=== PATIENT | female | born 1990 | race Caucasian/White ===

== ENCOUNTER 2018-11-26 23:34 | Emergency (ER) | payer BC ==
[2018-11-27] MEDS ORDERED: Sodium Chloride 0.9% 1,000 ML IV ONE (00:07)
[2018-11-27] MEDS ORDERED: Iohexol 240 (50 ml) PO ONE (00:09)
--- NOTE | 2018-11-27 00:10 | C.PDOC ---
History Of Present Illness 27 year old female presents to the ED complaining of upper abdominal pain for 3 hours. Denies any nausea, vomiting, diarrhea, fever, chills, urinary symptoms, chest pain, shortness of breath or any other complaints. Denies radiation of pain. Chief Complaint (Nursing): Abdominal Pain History Per: Patient History/Exam Limitations: no limitations Onset/Duration Of Symptoms: Hrs (3) Current Symptoms Are (Timing): Still Present Location Of Pain/Discomfort: RUQ, LUQ Radiation Of Pain To:: None Quality Of Discomfort: "Pain" Associated Symptoms: denies: Fever, Chills, Nausea, Vomiting, Diarrhea, Back Pain, Chest Pain, Urinary Symptoms Past Medical History Reviewed: Historical Data, Nursing Documentation, Vital Signs Vital Signs: Last Vital Signs Temp 98.7 F 11/26/18 23:44 Pulse 67 11/26/18 23:44 Resp 20 11/26/18 23:44 BP 92/61 L 11/26/18 23:44 Pulse Ox 100 11/26/18 23:44 - Medical History PMH: No Chronic Diseases Surgical History: No Surg Hx Family History: States: No Known Family Hx - Social History Hx Alcohol Use: No Hx Substance Use: No - Immunization History Hx Tetanus Toxoid Vaccination: No Hx Influenza Vaccination: No Hx Pneumococcal Vaccination: No Review Of Systems Except As Marked, All Systems Reviewed And Found Negative. Constitutional: Negative for: Fever, Chills Cardiovascular: Negative for: Chest Pain Respiratory: Negative for: Shortness of Breath Gastrointestinal: Positive for: Abdominal Pain. Negative for: Nausea, Vomiting, Diarrhea Genitourinary: Negative for: Dysuria, Hematuria Musculoskeletal: Negative for: Back Pain Physical Exam - Physical Exam Appears: Non-toxic, No Acute Distress Skin: Warm, Dry Head: Normacephalic Eye(s): bilateral: Normal Inspection Nose: Normal Oral Mucosa: Moist Neck: Supple Chest: Symmetrical Cardiovascular: Rhythm Regular Respiratory: Normal Breath Sounds, No Rales, No Rhonchi, No Wheezing Gastrointestinal/Abdominal: Bowel Sounds (normal ), Tenderness (bilateral upper abdominal quadrant tenderness), No Distention, No Guarding, No Rebound Back: No CVA Tenderness Neurological/Psych: Oriented x3, Normal Speech Gait: Steady ED Course And Treatment - Laboratory Results Result Diagrams: 11/27/18 00:07 11/27/18 00:07 O2 Sat by Pulse Oximetry: 100 (RA) Pulse Ox Interpretation: Normal - CT Scan/US CT PEL/ABD Other Rad Studies (CT/US): Read By Radiologist, Radiology Report Reviewed CT/US Interpretation: CT SCAN OF THE ABDOMEN AND PELVIS WITH CONTRAST. CLINICAL HISTORY: Abdominal pain. TECHNIQUE: Multiple axial and coronal CT images were obtained through the abdomen and pelvis after administration of intravenous contrast material. COMMENTS: Diffuse thickening enhancement of the gallbladder. Mild amount of pericholecystic free fluid. Moderate amount of fecal residue in the large bowel. The liver is of uniform attenuation without mass or defect. There is no intra or extrahepatic biliary ductal dilatation. The spleen is normal. The pancreas is of normal contour and attenuation characteristics. There is no evidence of adrenal mass. Both kidneys demonstrate prompt and equal nephrograms. The kidneys are normal in size, shape and configuration. There is no evidence of renal or ureteral mass. No renal or ureteral calculi are identified. There is no hydroureter or hydronephrosis. No evidence for appendicitis. There is no bowel wall thickening. No evidence for small or large bowel obstruction. There is no evidence of abdominal ascites or lymphadenopathy. There is no evidence of intrinsic or extrinsic bladder mass. There is no pelvic ascites or lymphadenopathy. Images of the lung bases show no evidence of pleural or parenchymal mass. There are no pleural effusions. The bony structures are free of lytic or blastic lesions. IMPRESSION: Suspected developing acute inflammatory pathology of the gallbladder. Sonographic evaluation is suggested. Constipation. Thank you for your kind referral of this patient. Medical Decision Making Medical Decision Making: Plan - CT ABD/PEL - Bentryl 20mg IM - Pepcid 20mg IVP - IV fluids - UA - POC Preg Spoke with Dr. Hastings, Gen Surgery. Patient will be admitted. Disposition Discussed With : Quan Hastings Doctor Will See Patient In The: Hospital Counseled Patient/Family Regarding: Diagnosis - Disposition Disposition: HOSPITALIZED Disposition Time: 04:20 Condition: STABLE - POA Present On Arrival: None - Clinical Impression Clinical Impression: Acute cholecystitis - Scribe Statement The provider has reviewed the documentation as recorded by the Deanibdora Hankins All medical record entries made by the Deanibdora were at my direction and personally dictated by me. I have reviewed the chart and agree that the record accurately reflects my personal performance of the history, physical exam, medical decision making, and the department course for this patient. I have also personally directed, reviewed, and agree with the discharge instructions and disposition.
[2018-11-27 00:17] LABS: SQUAMOUS EPITHIAL 10 /hpf (0-5); URINE BACTERIA RARE (<OCC); URINE BILIRUBIN NEGATIVE (NEGATIVE); URINE BLOOD NEGATIVE (NEGATIVE); URINE CLARITY Hazy (Clear); URINE COLOR Amber (YELLOW); URINE GLUCOSE (UA) NORMAL (Normal); URINE LEUKOCYTE ESTERASE 1+ Leu/uL (Negative); URINE PROTEIN NEGATIVE (NEGATIVE); URINE UROBILINOGEN NORMAL mg/dL (0.2-1.0)
[2018-11-27] MEDS ORDERED: Iodixanol 320 MG/ML 100 ML BOTTLE IV ONE ×2 (00:28→01:39)
[2018-11-27 00:31] LABS: BASO % 0.3 % (0.0-2.0); EOS # 0.2 K/uL (0.0-0.7); EOS % 1.3 % (0.0-4.0); HEMOGLOBIN 13.1 g/dL (11.0-16.0); LYMPH # 4.3 K/uL (1.0-4.3); LYMPH % 33.7 % (20.0-40.0); MEAN CORPUSCULAR HEMOGLOBIN 29.7 pg (27.0-31.0); MEAN CORPUSCULAR HGB CONC 33.7 g/dL (33.0-37.0); MEAN PLATELET VOLUME 9.3 fL (7.2-11.7); MONO # 0.8 K/uL (0.0-0.8); MONO % 6.6 % (0.0-10.0); NEUT # 7.5 K/uL (1.8-7.0); NEUT % 58.1 % (50.0-75.0); RBC 4.4 Mil/uL (3.80-5.20); RED CELL DISTRIBUTION WIDTH 13.2 % (11.5-14.5); WHITE BLOOD COUNT 12.8 K/uL (4.8-10.8)
[2018-11-27 00:32] LABS: ALB/GLOB RATIO 1.8 (1.0-2.1); ALBUMIN 4.6 g/dL (3.5-5.0); ALT/SGPT 53 U/L (9-52); AST/SGOT 113 U/L (14-36); BLOOD UREA NITROGEN 20 mg/dL (7-17); CALCIUM 9.3 mg/dl (8.6-10.4); GFR NON-AFRICAN AMERICAN > 60; LIPASE 213 U/L (23-300)
[2018-11-27] MEDS ORDERED: Iohexol 240 (50 ml) ONE (00:34)
[2018-11-27] MEDS ORDERED: Sodium Chloride 0.9% 1,000 ML ONE (00:34)
[2018-11-27] MEDS ORDERED: Piperacillin/Tazobact 3.375 gm 100 ML IVPB STA (02:23)
[2018-11-27] MEDS ORDERED: metroNIDAZOLE IV 500 mg/100 ml 500 MG/100 ML BAG IVPB SCH (02:30)
[2018-11-27] MEDS ORDERED: Piperacillin/Tazobact 3.375 gm 100 ML IVPB ONE (03:07)
[2018-11-27] MEDS ORDERED: metroNIDAZOLE IV 500 mg/100 ml 500 MG/100 ML BAG ONE (03:07)
[2018-11-27 04:47] VITALS: RESP 20
[2018-11-27] MEDS ORDERED: Lactated Ringer's 1,000 ML IV SCH (06:15)
--- NOTE | 2018-11-27 07:33 | CP.PCM.HP ---
History of Present Illness - History of Present Illness History of Present Illness: GENERAL SURGERY HISTORY AND PHYSICAL FOR DR. BERNAL 27yo F with no PMHx presents to the ED with abdominal pain. The pain began suddenly at 11PM last night. She denies nausea or vomiting. States that the pain has completely resolved. Denies ever having pain like this before. Reports having normal BMs. PMHx: none Surgeries: Jul 2017 Medications: none Allergies: none Social history: rare etoh, never tobacco or illicit drug use Present on Admission - Present on Admission Any Indicators Present on Admission: No Review of Systems - Review of Systems All systems: reviewed and no additional remarkable complaints except (as per HPI) Past Patient History - Past Medical History & Family History Past Medical History?: No - Past Social History Smoking Status: Never Smoked Alcohol: Other (rare) Drugs: Denies - MUSCULOSKELETAL/RHEUMATOLOGICAL Hx Falls: No - PSYCHIATRIC Hx Substance Use: No - SURGICAL HISTORY Hx Surgeries: Yes Hx Section: Yes (Jul 2017) Other/Comment: C section - ANESTHESIA Hx Anesthesia: Yes Hx Anesthesia Reactions: No Hx Malignant Hyperthermia: No Has any member of the family had a problem w/ anesthesia?: No Meds Allergies/Adverse Reactions: Allergies Allergy/AdvReac Type Severity Reaction Status Date / Time No Known Allergies Allergy Unverified 11/26/18 23:48 Physical Exam - Constitutional Appears: Well, Non-toxic, No Acute Distress - Head Exam Head Exam: ATRAUMATIC, NORMAL INSPECTION - Eye Exam Eye Exam: EOMI, Normal appearance - Respiratory Exam Respiratory Exam: NORMAL BREATHING PATTERN. absent: Respiratory Distress - Cardiovascular Exam Cardiovascular Exam: +S1, +S2 - GI/Abdominal Exam GI & Abdominal Exam: Soft. absent: Distended, Firm, Guarding, Rebound, Rigid, Tenderness Additional comments: Negative Mcdonald sign - Neurological Exam Neurological exam: Alert, CN II-XII Intact, Oriented x3 - Psychiatric Exam Psychiatric exam: Normal Affect, Normal Mood - Skin Skin Exam: Dry, Normal Color, Warm Results - Vital Signs Recent Vital Signs: Last Vital Signs Temp 97.6 F 11/27/18 04:39 Pulse 64 11/27/18 04:39 Resp 20 11/27/18 05:26 BP 100/60 11/27/18 04:39 Pulse Ox 100 11/27/18 05:36 - Labs Result Diagrams: 11/27/18 00:07 11/27/18 00:07 Labs: Laboratory Results - last 24 hr 11/26/18 11/27/18 11/27/18 23:58 00:07 00:07 WBC 12.8 H RBC 4.40 Hgb 13.1 Hct 38.8 MCV 88.0 MCH 29.7 MCHC 33.7 RDW 13.2 Plt Count 242 MPV 9.3 Neut % (Auto) 58.1 Lymph % (Auto) 33.7 [place] % (Auto) 6.6 Eos % (Auto) 1.3 Baso % (Auto) 0.3 Neut # (Auto) 7.5 H Lymph # (Auto) 4.3 [place] # (Auto) 0.8 Eos # (Auto) 0.2 Baso # (Auto) 0.0 Sodium 136 Potassium 3.4 L Chloride 101 Carbon Dioxide 26 Anion Gap 12 BUN 20 H Creatinine 0.9 Est GFR ( Amer) > 60 Est GFR (Non-Af Amer) > 60 Random Glucose 136 H Calcium 9.3 Total Bilirubin 0.4 AST 113 H ALT 53 H Alkaline Phosphatase 73 Total Protein 7.2 Albumin 4.6 Globulin 2.6 Albumin/Globulin Ratio 1.8 Lipase 213 Urine Color [place] Urine Clarity Hazy Urine pH 5.0 Ur Specific [place] 1.014 Urine Protein Negative Urine Glucose (UA) Normal Urine Ketones Negative Urine Blood Negative Urine Nitrate Negative Urine Bilirubin Negative Urine Urobilinogen Normal Ur Leukocyte Esterase 1+ H Urine WBC (Auto) 8 H Urine RBC (Auto) 1 Ur Squamous Epith Cells 10 H Urine Bacteria Rare Hyaline Casts 6-10 H Assessment & Plan - Assessment and Plan (Free Text) Assessment: 27yo F with no PMHx who has cholecystitis on US - US: cholelithiasis, thickening of gallbladder wall 6.3mm, pericholecystic fluid, CBD 3.1mm - Clinically, pt has no pain, completely non tender, negative Mcdonald sign - Pt states that she does not want surgery at this time as she has a baby at h ome and her pain is gone - She prefers to follow up outpatient for elective cholecystectomy at a later date - Will give trial of low fat diet to see if pt tolerates - Discussed plan with Dr. Darling Alvarado PGY-4
[2018-11-27 08:42] VITALS: BP 95/68; PULSE 80; TEMP 98.1; O2SAT 98
[2018-11-27] MEDS ORDERED: Potassium Chloride 20 mEq ER Tab PO ONE (10:00)
[2018-11-27] MEDS ORDERED: Piperacill/Tazo 3.375gm in Dex 3.375 GM/50 ML BAG IVPB SCH (10:00)
--- NOTE | 2018-11-27 11:02 | CT ---
Date of service: 11/27/2018 PROCEDURE: CT Abdomen and Pelvis with contrast HISTORY: Abdominal pain COMPARISON: None. TECHNIQUE: Multiple contiguous axial images were performed through the abdomen and pelvis with the use of intravenous contrast. Subsequently, sagittal and coronal reformatted images were obtained. Radiation dose: Total exam DLP = 516.52 mGy-cm. This CT exam was performed using one or more of the following dose reduction techniques: Automated exposure control, adjustment of the mA and/or kV according to patient size, and/or use of iterative reconstruction technique. FINDINGS: LOWER THORAX: Mild atelectasis at the lung bases. LIVER: Mild intrahepatic biliary ductal dilatation. GALLBLADDER AND BILE DUCTS: Distended gallbladder with prominent thickening of the gallbladder wall with associated pericholecystic fluid. These findings would be concerning for possible acute cholecystitis. Questionable filling defect on series 3, image 48 at the level of the common bile duct which may represent a calculus. Correlation with MRCP may be helpful if clinically indicated. In addition, correlation with nuclear medicine study and or right upper quadrant abdominal ultrasound would be helpful to better evaluate for acute cholecystitis. PANCREAS: Unremarkable. No gross lesion or ductal dilatation. SPLEEN: Unremarkable. ADRENALS: Unremarkable. No mass. KIDNEYS AND URETERS: Unremarkable. No hydronephrosis. No solid mass. VASCULATURE: Unremarkable. No aortic aneurysm. No aortic atherosclerotic calcification or mural plaque present. BOWEL: Moderate fecal retention in the colon suggestive for constipation. APPENDIX: Normal appendix. PERITONEUM: Unremarkable. No free fluid. No free air. LYMPH NODES: Few shotty para-aortic and inguinal lymph nodes. BLADDER: Unremarkable. REPRODUCTIVE: Unremarkable. BONES: Degenerative changes in the spine. OTHER FINDINGS: None. IMPRESSION: Distended gallbladder with prominent thickening of the gallbladder wall with associated pericholecystic fluid. These findings would be concerning for possible acute cholecystitis. Questionable filling defect on series 3, image 48 at the level of the common bile duct which may represent a calculus. Correlation with MRCP may be helpful if clinically indicated. In addition, correlation with nuclear medicine study and or right upper quadrant abdominal ultrasound would be helpful to better evaluate for acute cholecystitis. Additional findings as above. A preliminary report was generated at 2:08 a.m. on 11/27/[address] Odalis Bynum from [employer]
--- NOTE | 2018-11-27 11:44 | US ---
Abdominal ultrasound HISTORY: Abdominal pain. Evaluate for cholecystitis. COMPARISON: CT scan dated 11/27/2018 TECHNIQUE: Real-time sonography was performed through the right upper quadrant of the abdomen. FINDINGS: LIVER: 14.9 centimeters in length. Increased echogenicity of the hepatic parenchymal cortex suggestive for fatty infiltration versus hepatic parenchymal disease. Clinical correlation. Gallbladder: Cholelithiasis. Gallbladder wall thickening measuring 6.3 millimeters. Associated gallbladder wall edema. Pericholecystic fluid. Negative sonographic Mcdonald's sign. Common bile duct measures 3.1 millimeters, within normal limits. Limited visualization of the pancreas. Spleen measures 10.6 centimeters in length, within normal limits. Visualized aorta and IVC are preserved. Right kidney: 10.5 x 3.6 x 4.7 centimeters. No calculi or hydronephrosis. Left Kidney: 10.9 x 5.2 x 4.7 centimeters. No calculi or hydronephrosis. Impression: 1. Cholelithiasis with thickened gallbladder wall measuring up to 6.3 millimeters with associated gallbladder wall edema and pericholecystic fluid. These findings are concerning for acute cholecystitis. Clinical correlation. Correlation with nuclear medicine study and MRCP may be helpful for further evaluation if clinically indicated. 2. Increased echogenicity of the hepatic parenchymal cortex suggestive for fatty infiltration versus hepatic parenchymal disease. Clinical correlation. 3. Limited visualization of the pancreas. A preliminary report was generated at 4:10 a.m. on 11/27/[address] Odalis Bynum from [employer].
== END 2018-11-27 05:11 | disposition left against medical advice (07) ==
LOC: C.ER 23:34 → UNDOADMIN 11-27 04:39 → C.3T 11-27 04:39 → UNDODISIN 11-27 13:00
DX: K81.0 Acute cholecystitis (principal)
CPT/HCPCS: 36415; 74177; 76705; 76770; 80053; 81001; 81025; 83690; 85025; 87040; 87086; 96361; 96365; 96366; 96367; 96372; 96375; 99285; J0500; J2543; J3480; J7030; Q9966; Q9967